=== PATIENT | female | born 1950 | race Caucasian/White ===

== ENCOUNTER → 2022-02-26 | Outpatient (CLI) | payer MEDICARE, OTHER ==
--- NOTE | 2022-02-26 17:36 | BD ---
EXAMINATION TYPE: Axial Bone Density DATE OF EXAM: 02/26/2022 COMPARISON: NEW TO [facility] CLINICAL HISTORY: 71 years year old Female. ICD-10 CODE: M81.0 AGE RELATED OSTEOPOROSIS Height: 58.8 Weight: 177 FRAX RISK QUESTIONS: Glucocorticoids (More than 3mos): YES (Ex: prednisone, prednisolone, methylprednisolone, dexamethasone, and hydrocortisone). Rheumatoid Arthritis: YES RISK FACTORS HISTORY OF: Postmenopausal woman: YES, AT ABOUT 49 YRS OLD Lost more than 2 inches in height since high school: YES Hyperparathyroidism: NO Adrenal Insufficiency: NO MEDICATIONS: Prednisone or other steroids: YES, FOR RA, CRONES DISEASE, How Long: ON AND OFF FOR YRS Thyroid Medications: YES, IN THE PAST, NOT NOW Additional Medications: BP MEDS, REFULX MEDS, STAGE 4 KIDNEY DISEASE, ALPURNENOL, FOR KIDNEYS, VIT D AND CALCIUM, Additional History: HYPERTENSION, REFLUX, STAGE 4 KIDNEY DISEASE, CRONES DISEASE, RENAL, EXAM MEASUREMENTS: Bone mineral densitometry was performed using the [employer] System. Bone mineral density as measured about the Lumbar spine is: ----- L1-L4(G/cm2): 0.820 T Score Values are as follows: ----- L1: -2.7 ----- L2: -3.0 ----- L3: -2.8 ----- L4: -3.5 ----- L1-L4: -3.0 Bone mineral density NEW TO [facility] Bone mineral density about the R hip (g/cm2): 0.562 Bone mineral density about the L hip (g/cm2): 0.549 T Score values are as follows: -----R Neck: -3.5 -----L Neck: -3.1 -----R Total: -2.5 -----L Total: -3.6 Bone mineral density NEW DEXA TO [facility] FRAX%s: The graph provided illustrates a 43.6% chance for a major osteoporotic fx and a 22.9% chance for the hips probability for fx in 10 years time. IMPRESSION: Osteoporosis (T Score less than -2.5). There is increased fracture risk and therapy is usually indicated based on age. Re-Screen 1-2 years. NOTE: T-SCORE=SD OF THE YOUNG ADULT MEAN.
== END | disposition home or self-care (01) ==
LOC: RADBDWWP 08:38
PROVIDERS: ATTEND Internal Medicine Rheumatology
DX: M81.0 Age-related osteoporosis without current pathological fracture (principal)
CPT/HCPCS: 77080